=== PATIENT | male | born 1965 | race Caucasian/White ===

== ENCOUNTER 2016-06-26 19:59 | Emergency (ER) ==
[2016-06-26 20:29] VITALS: BP 135/84
[2016-06-26] MEDS ORDERED: DIPHTHERIA/TETANUS ADULT IM ONE (20:53)
[2016-06-26] MEDS ORDERED: DIPHTHERIA/TETANUS ADULT ONE (21:00)
[2016-06-26] MEDS ORDERED: XYLOCAINE-MPF 1% INJ ONE (21:17)
[2016-06-26] MEDS ORDERED: POLYSPORIN OINTMENT TOP ONE (22:10)
--- NOTE | 2016-06-26 22:15 | PROVIDER DOCUMENTATION ---
HPI-Musculoskeletal Pain/Inj - GENERAL Chief Complaint: Laceration[s] Stated Complaint: LACERATION Time Seen by Provider: 06/26/16 21:09 Source: patient - HX OF PRESENT ILLNESS-MUSKULOSKELTAL Nature of Presenting Problem: 51 yo male presents to ER with c/o injury to left midline finger with saw. He was cutting some wood for a stair case with an electric saw and cut into finger. Quality of Pain: reports: aching Severity in ED: mild Onset/Duration: just prior to arrival Timing: still present Modifying Factors: improves with: movement (worsens), palpation (worsens) Any recent injury?: Yes Locality of Occurance: Work Similar Symptoms Previously?: No Recently seen or treated by another doctor?: No - UPPER EXTREMITY PAIN/INJURY Extremities Pain Location: 3rd finger: left Context / Method of Injury: reports: incised (with saw) Associated Symptoms: reports: denies symptoms Review of Systems - Adult - REVIEW OF SYSTEMS - ADULT Constitutional: reports: no symptoms reported Eyes: reports: no symptoms reported Ears, Nose, Mouth & Throat: reports: no symptoms reported Cardiovascular: reports: no symptoms reported Respiratory: reports: no symptoms reported Gastrointestinal: reports: no symptoms reported Genitourinary: reports: no symptoms reported Musculoskeletal: reports: no symptoms reported Integumentary: reports: see HPI Neurological: reports: no symptoms reported Psychiatric: reports: no symptoms reported Endocrine: reports: no symptoms reported Hematologic/Lymphatic: reports: no symptoms reported Allergic/Immunologic: reports: no symptoms reported All Other Systems: Reviewed and Negative Past History - Adult - PAST MEDICAL HISTORY-ADULT Review of Records: reports: Old Records Reviewed, Nursing Assessment Review, Medications Reviewed, Social history reviewed & non-contributory. Major Childhood Illnesses: reports: denies history Cardiovascular: reports: denies history Respiratory: reports: denies history Gastrointestinal: reports: denies history Obstetrical/Gynecological: reports: denies history Genitourinary: reports: denies history Musculoskeletal: reports: denies history Neurological: reports: denies history Endocrine/Immune: reports: denies history Other Conditions: reports: denies history - IMMUNIZATION STATUS Childhood Immunizations: See Nurse Assessment Flu Vaccine: See Nurse Assessment - FAMILY HISTORY Family History: reviewed, not pertinent - SOCIAL HISTORY Smoking: denies Substance Use: none/never, denies Alcohol Use Frequency: never Living Situation: family Physical Exam-Injury Related - Physical Exam-Injury Related Initial Vital Signs Reviewed: Yes General Appearance: appears well, alert, no apparent distress Eyes: PERRL/EOMI Head, Ears, Nose, Mouth & Throat: normocephalic/atraumatic Respiratory: no respiratory distress Cardiovascular: normal peripheral pulses Peripheral Pulses: radial (R): 2+, radial (L): 2+ Extremity: tenderness (left middle finger; ROM intact) Integumentary: laceration (to left middle finger into left 1/4 of nail) Neurologic: grossly normal Psych/Mental Status: normal mood/affect, normal thought content, normal thought process, oriented x 3 - Glascow Coma Score Best Eye Response (Union): (4) open spontaneously Best Verbal Response (Di): (5) oriented Best Motor Response (Di): (6) obeys commands Union Total: 15 Progress - PLAN OF CARE/RESULTS Progress/Plan/Lab Results: 2114-Discussed ordering an x-ray but patient does not want an x-ray because he is out of pocket for expenses; he states "it does not hurt that bad so I do not think it is broken." I explored wound with lidocaine needle and do not feel or see bone just soft tissue. 2209-Discussed dx/tx/discharge and follow up instructions with patient; she verbalized understanding. Orders Category Date Time Status Finger Splint DIRECTED Care 06/26/16 22:11 Active Suture Tray Set-Up DIRECTED Care 06/26/16 21:17 Active Wound Care DIRECTED Care 06/26/16 22:10 Active Bacitracin/Polymixin Oint [Polysporin Ointment] Med 06/26/16 22:10 Discontinued See Dose Instructions TOP NOW ONE Diphtheria/Tetanus Adult Med 06/26/16 21:00 Discontinued 0.5 ml .ROUTE .STK-MED ONE Diphtheria/Tetanus Adult Med 06/26/16 20:53 Discontinued 0.5 ml IM .ONCE ONE Lidocaine 1% Pf [Xylocaine-Mpf 1%] Med 06/26/16 21:17 Discontinued See Dose Instructions INJ NOW ONE Vital Signs - 24 hr 06/26/16 20:24 Temperature 98 F Pulse Rate 67 Respiratory 18 Rate Blood Pressure 135/84 O2 Sat by Pulse 98 Oximetry Procedures - LACERATION/WOUND REPAIR/FB Left Finger Wound Location: Other: distal end of left middle finger Wound Length: 4cm Wound's Depth, Shape: superficial Wound Explored/Foreign Body: clean Irrigated with Saline?: Yes Prepped with: Betadine Anesthetic: 1%, Lidocaine/Xylocaine Volume of Anesthetic (ml's): 4 Wound Debrided: minimal Wound Repaired with: Sutures Suture Size/Type: 4.0, Nylon Number of Sutures: 5 Layer Closure?: No Sterile Dressing Applied?: Yes Splint Applied?: Yes Sling Applied?: No Post Procedure Neurovascular Exam: Intact Procedure Comment: 1 suture through the nail Departure - Departure Time of Disposition Order: 22:15 DIAGNOSIS: Laceration of left middle finger, Tetanus Injury of finger of left hand Qualifiers: Encounter type: initial encounter Qualified Code(s): S69.92XA - Unspecified injury of left wrist, hand and finger(s), initial encounter Disposition: HOME 01 Certified Medical Emergency: Emergent Condition: Good Additional Instructions: Follow up with primary care doctor this week. Sutures to be removed in 10-14 days. Wash with dial antibacterial soap and water, pat dry. Take medications as prescribed. Can shower but so not soak in water. Wear splint for protection. ED Follow Up Instructions: You have been treated by a care provider in the Emergency Department. These instructions are being provided to you so you can have an understanding of how to care for yourself upon discharge. Upon discharge from the Emergency Department, you are responsible for making arrangements for follow-up care by a physician of your choice. Take all prescribed medications as directed. Return to the Emergency Department immediately for any new or worsening symptoms. You may call the Physician Referral phone number at [phone] to obtain a list of Physicians who are taking new patients. Prescriptions: Cephalexin [Keflex] 500 mg PO BID #20 capsule Referrals: Frank Rcihardson MD [Primary Care Provider] - Forms: Return to School/Parent Work Instructions: Cephalexin tablets or capsules, Laceration Care, Adult, Easy-to- Read Attestation - Physician/ ANMOL Attestation Patient care was provided by Advanced Practice Provider:: Yes Advanced Practice Provider:: Lay Whitmore Advanced Practice Provider documentation review:: The Mid-level provider documentation, treatment plan and medical decision making was reviewed by the physician who agrees with all treatment and medical decision making by the MLP.
== END 2016-06-26 23:17 | disposition home or self-care (01) ==
LOC: P.ED 19:59
DX: S61.213A Laceration without foreign body of left middle finger without damage to nail, initial encounter (principal); S69.92XA Unspecified injury of left wrist, hand and finger(s), initial encounter; W29.8XXA Contact with other powered hand tools and household machinery, initial encounter; Z23 Encounter for immunization
CPT/HCPCS: 90471; 90714